=== PATIENT | male | born 1965 | race Hispanic/Latino ===

== ENCOUNTER 2017-11-27 19:50 | Emergency (ER) | payer OTHER ==
[~2017-11-27] VITALS: Ht 175.3 cm; Wt 87.1 kg
[2017-11-27] MEDS ORDERED: PRILOSEC OTC20 MG PO (20:06)
--- NOTE | 2017-11-28 11:32 | EKG ---
[facility] [address] [place], [place] [address] Signed Sinus bradycardia Septal infarct , age undetermined Abnormal ECG No previous ECGs available Confirmed by VICKY VICTORIA MD ([id number] on 11/28/2017 11:31:50 AM Electronically Signed By: VICKY VICTORIA MD 11/28/17 1132 PATIENT NAME: NIA TERESE TUCKER Electrocardiogram DATE OF : 65 PHYSICIAN: VICKY VICTORIA MD REPORT #: [id number] REPORT IS CONFIDENTIAL AND NOT TO BE RELEASED WITHOUT AUTHORIZATION
== END 2017-11-27 21:28 | disposition home or self-care (01) ==
LOC: ED 19:50
DX: R07.9 Chest pain, unspecified (principal); Z87.891 Personal history of nicotine dependence; Z79.899 Other long term (current) drug therapy
CPT/HCPCS: 71045; 80053; 84484; 85025; 93005; 93010; 99284